=== PATIENT | male | born 1955 | race Caucasian/White ===

== ENCOUNTER → 2017-06-24 | Outpatient (CLI) | payer OTHER ==
[~2017-06-24] MED LIST: MULT-506 PO; OMEG10007 PO; VGR50 PO
--- NOTE | 2017-06-24 16:46 | DIAGNOSTIC IMAGING REPORT ---
CHEST 2 VIEWS ROUTINE HISTORY: BRONCHITIS COMPARISON: Chest 05/30/2010. FINDINGS: No pneumothorax. No pleural effusions. The heart is normal in size. Nodular density at the left lung base is consistent with a nipple shadow. No focal lung consolidations to suggest pneumonia. Small linear density within the left lung base favors atelectasis. IMPRESSION: No focal lung consolidations to suggest pneumonia. Electronically signed by: Gordo Shea M.D. 06/24/2017 4:45 PM Dictated Date/Time: 06/24/2017 4:43 PM
== END | disposition home or self-care (01) ==
LOC: C.RAD 16:01
PROVIDERS: ATTEND Family Medicine
DX: J20.9 Acute bronchitis, unspecified (principal)